=== PATIENT | female | born 1995 | race Caucasian/White ===

== ENCOUNTER → 2016-10-17 | Outpatient (CLI) | payer OTHER ==
[2015-12-31 19:49] VITALS: BP 111/63
[2016-10-17 11:57] LABS: BILIRUBIN,URINE NEGATIVE (NEGATIVE); BLOOD/HEMOGLOBIN,URINE 3+ (NEGATIVE); GLUCOSE, URINE NEGATIVE (NEGATIVE); KETONES,URINE NEGATIVE (NEGATIVE); LEUKOCYTE ESTERASE ,URINE 1+ (NEGATIVE); NITRITES,URINE NEGATIVE (NEGATIVE); PH,URINE 6.5 (5.0 - 8.0); PROTEIN,URINE 1+ (NEGATIVE); UROBILINOGEN,URINE NORMAL (NORMAL)
[2016-10-17 12:00] LABS: BASOPHILS # (AUTO) 0.1 X10^3/uL (0.0-0.1); BASOPHILS % (AUTO) 0.5 % (0.2-1.0); EOSINOPHILS # (AUTO) 0.1 x10^3/uL (0.0-0.2); EOSINOPHILS % (AUTO) 0.7 % (0.9-2.9); HEMATOCRIT 33.6 % (36.0-47.0); HEMOGLOBIN 11.1 g/dL (12.0-16.0); LYMPHOCYTES # (AUTO) 2.2 X10^3/uL (1.3-2.9); LYMPHOCYTES % (AUTO) 16.6 % (21.0-51.0); MEAN CORPUSCULAR HEMOGLOBIN 27.4 pg (27.0-34.0); MEAN CORPUSCULAR HGB CONC 32.9 g/dL (33.0-35.0); MEAN CORPUSCULAR VOLUME 83.3 fL (80.0-100.0); MEAN PLATELET VOLUME 8.8 fL (7.4-11.0); MONOCYTES # (AUTO) 0.8 x10^3/uL (0.3-0.8); MONOCYTES % (AUTO) 5.8 % (0.0-13.0); NEUTROPHILS # (AUTO) 10.2 x10^3/uL (2.2-4.8); NEUTROPHILS % (AUTO) 76.4 % (42.0-75.0); PLATELET COUNT 439 X10^3/uL (150.0-450.0); RED BLOOD COUNT 4.04 X10^6/uL (3.5-5.4); RED CELL DISTRIBUTION WIDTH 13.8 % (11.6-16.5); WHITE BLOOD COUNT 13.3 X10^3/uL (3.6-10.0)
[2016-10-17 12:08] LABS: BLOOD UREA NITROGEN 7 mg/dL (7-18); CALCIUM 8.7 mg/dL (8.5-10.1); CARBON DIOXIDE 23.5 mmol/L (21-32); CHLORIDE 104 mmol/L (98-107); CREATININE 0.63 mg/dL (0.55-1.02); GLUCOSE 95 mg/dL (65-99); SODIUM 138 mmol/L (136-145); eGFR BLACK RACES > 60 (>60); eGFR NON BLACK RACES > 60 (>60)
[2016-10-17 12:18] LABS: AMORPHOUS SEDIMENT,UR 2+ /HPF (NEGATIVE); APPEARANCE,URINE HAZY (CLEAR); BACTERIA,URINE TRACE /HPF (NEGATIVE); COLOR,URINE YELLOW (YELLOW); MUCUS,URINE FEW /HPF (NEGATIVE); SQUAMOUS EPITHELIAL CELL,UR MANY /HPF (NEGATIVE)
== END ==
LOC: LAB 11:17
PROVIDERS: ATTEND Specialist
DX: Z01.818 Encounter for other preprocedural examination (principal); Z34.83 Encounter for supervision of other normal pregnancy, third trimester
CPT/HCPCS: 36415; 80048; 81001; 85025; 86592; 86850; 86900; 86901

== ENCOUNTER 2016-10-20 06:28 | Inpatient (IN) | payer OTHER ==
[~2016-10-20 06:28] MED LIST: D5 1/2 NS 1000 ML 1,000 ML IV ONE; D5 1/2 NS 1000ML W PITOCIN 20 U/L 1,000 ML IV ONE; D5LR 1000ML W PITOCIN 10 U/L 1,000 ML IV ONE; PITOCIN ONE
[2016-10-20] MEDS ORDERED: REGLAN INJ 10 MG VIAL IVP PRN ×2 (06:34→15:25)
[2016-10-20] MEDS ORDERED: PHENERGAN INJ 25 MG IV PRN (06:34)
[2016-10-20] MEDS ORDERED: PITOCIN IVP ONE (06:34)
[2016-10-20] MEDS ORDERED: MORPHINE SULFATE INJ 2 MG IVP PRN (06:34)
[2016-10-20] MEDS ORDERED: D5 1/2 NS 1000 ML 1,000 ML IV SCH (06:34)
[2016-10-20] MEDS ORDERED: PITOCIN 10 UNITS in D5 LR 1000 ML 1,000 ML IV PRN (06:34)
[2016-10-20] MEDS ORDERED: NUBAIN INJ 200 MG VIAL MULTIDOSE IVP PRN (06:34)
[2016-10-20] MEDS ORDERED: HYDROGEN PEROXIDE 3% ONE (06:56)
--- NOTE | 2016-10-20 07:04 | DR.OB ---
OB Quick Note - Assessment/Plan Assessment/Plan: L&D 10/20/16 at 6:50am S-No complaint. O-Afebrile,VSS [id number] with good LTV, +accel, no decel. CTX=none CVX=1cm/50%/-1/VTX A-IUP at 39 0/7 weeks for induction P-Begin pitocin induction Anticipate
[2016-10-20] MEDS ORDERED: NS 1000 ML 1,000 ML ONE (07:29)
[2016-10-20] MEDS ORDERED: LR 1000 ML IV 1,000 ML IV ONE ×2 (07:29→13:19)
[2016-10-20] MEDS ORDERED: FENTANYL INJ 100 mcg ONE (07:30)
[2016-10-20] MEDS ORDERED: NAROPIN EPIDURAL 0.2% + FENTANYL 90MCG 60 ML EPI ONE (07:30)
[2016-10-20] MEDS ORDERED: NS 1000 ML 1,000 ML IV ONE (07:30)
[2016-10-20] MEDS ORDERED: NUBAIN INJ 10 ONE (09:46)
--- NOTE | 2016-10-20 11:54 | DR.OB ---
OB Quick Note - Assessment/Plan Assessment/Plan: L&D 10/20/16 at 11:50am Pitocin=5mu/min. S-No complaint except CTX. Had a spontaneous decel about an hour ago deep for about 3-4 min. that resolved. O-Afebrile,VSS [id number] with good LTV, +accel, no more decel. CTX=q 1 1/2 to 4 min., about 25-50mmHg CVX=3cm/75%/0 FSE placed. A-IUP at 39 0/7 weeks for induction P-Cont. pitocin induction Anticipate
[2016-10-20] MEDS ORDERED: FENTANYL INJ 100 mcg EPI ONE (13:19)
[2016-10-20] MEDS ORDERED: NAROPIN EPIDURAL 0.2% 60 ML with FENTANYL INJ 100 mcg 90 MCG IVP SCH ×2 (14:00)
[2016-10-20] MEDS ORDERED: ANCEF VIAL 1 GM ONE (14:09)
[2016-10-20] MEDS ORDERED: NS 50 ML IV + SPIKE MINIBAG* 50 ML IV ONE (14:09)
[2016-10-20] MEDS ORDERED: XYLOCAINE 2% and EPINEPHRINE 1:100,000 ONE (14:13)
[2016-10-20] MEDS ORDERED: NS IRRIGATION 1000 ML 1,000 ML IR ONE (14:30)
[2016-10-20] MEDS ORDERED: DURAMORPH ONE (14:38)
[2016-10-20] MEDS ORDERED: DIPRIVAN VIAL ONE (14:47)
[2016-10-20] MEDS ORDERED: ZOFRAN INJ 4 MG VIAL ONE (14:47)
[2016-10-20] MEDS ORDERED: XYLOCAINE 2 % (PLAIN) ONE (14:47)
[2016-10-20] MEDS ORDERED: REGLAN INJ 10 MG VIAL ONE (14:47)
[2016-10-20] MEDS ORDERED: PITOCIN ONE (14:47)
[2016-10-20] MEDS ORDERED: ZOFRAN INJ 4 MG VIAL IVP PRN ×2 (15:25→15:43)
[2016-10-20] MEDS ORDERED: BENADRYL INJ 50 MG VIAL IVP PRN ×2 (15:25→15:43)
[2016-10-20] MEDS ORDERED: PHENERGAN INJ 25 MG IVP PRN (15:25)
[2016-10-20] MEDS ORDERED: MYLICON TAB 80 MG CHEW PO PRN (15:43)
[2016-10-20] MEDS ORDERED: PERCOCET TAB 5/325 MG PO PRN (15:43)
[2016-10-20] MEDS ORDERED: ADACEL TDaP IM ONE (15:43)
[2016-10-20] MEDS ORDERED: NARCAN INJ IVP PRN (15:43)
[2016-10-20] MEDS ORDERED: TORADOL 30 MG VIAL IVP PRN (15:43)
[2016-10-20] MEDS ORDERED: D5 1/2 NS 1000 ML 1,000 ML with PITOCIN 20 UNITS IV SCH ×2 (16:00)
[2016-10-20] MEDS: ZANTAC PO SCH (21:02)
[2016-10-21 05:35] LABS: HEMATOCRIT 24.7 % (36.0-47.0); HEMOGLOBIN 8.2 g/dL (12.0-16.0)
[2016-10-21] MEDS: PERCOCET TAB 5/325 MG PO PRN ×4 (07:57→22:44)
[2016-10-21] MEDS: BACTROBAN OINT TOP SCH ×3 (07:58→21:07)
[2016-10-21] MEDS: COLACE CAP 100 MG PO SCH ×2 (07:59→21:07)
[2016-10-21] MEDS: FERROUS SULFATE PO SCH ×2 (07:59→17:16)
[2016-10-21] MEDS: ZANTAC PO SCH ×2 (07:59→21:06)
[2016-10-21] MEDS: PRENATAL PLUS PO SCH (07:59)
[2016-10-21] MEDS ORDERED: ADACEL TDaP IM ONE (12:00)
[2016-10-21] MEDS: MOTRIN TAB 800 MG PO PRN (12:06)
[2016-10-21] MEDS ORDERED: PERCOCET TAB 5/325 MG PO PRN (17:37)
[2016-10-22] MEDS: PERCOCET TAB 5/325 MG PO PRN ×3 (03:03→11:45)
[2016-10-22] MEDS: MOTRIN TAB 800 MG PO PRN (06:15)
[2016-10-22] MEDS: FERROUS SULFATE PO SCH (06:16)
[2016-10-22] MEDS: BACTROBAN OINT TOP SCH (06:27)
[2016-10-22] MEDS: COLACE CAP 100 MG PO SCH (08:43)
[2016-10-22] MEDS: ZANTAC PO SCH (08:43)
[2016-10-22] MEDS: PRENATAL PLUS PO SCH (09:25)
[2016-10-22 12:04] VITALS: BP 95/51
== END 2016-10-22 12:30 | disposition home or self-care (01) | DRG 766 ==
LOC: LD 06:28 → MED/SURG 15:48
PROVIDERS: ADMIT Specialist; ATTEND Specialist
PROC: 10907ZC Drainage of Amniotic Fluid, Therapeutic from Products of Conception, Via Natural or Artificial Opening (ICD-10-PCS; 2016-10-20)
PROC: 3E033VJ Introduction of Other Hormone into Peripheral Vein, Percutaneous Approach (ICD-10-PCS; 2016-10-20)
PROC: 3E0234Z Introduction of Serum, Toxoid and Vaccine into Muscle, Percutaneous Approach (ICD-10-PCS; 2016-10-20)
PROC: 10D00Z1 Extraction of Products of Conception, Low, Open Approach (ICD-10-PCS; principal; 2016-10-20 14:30)
DX: O98.319 Other infections with a predominantly sexual mode of transmission complicating pregnancy, unspecified trimester (principal); Z37.0 Single live birth; O26.899 Other specified pregnancy related conditions, unspecified trimester; O77.8 Labor and delivery complicated by other evidence of fetal stress; Z3A.39 39 weeks gestation of pregnancy; Z23 Encounter for immunization
CPT/HCPCS: 36415; 85014; 85018; A4216; A4222; S0197; J0690; J1885; J2001; J2300; J2405; J2590; J2765; J3010; J3490; J7042; J7120

== ENCOUNTER 2018-07-13 06:29 | Inpatient (IN) ==
[~2018-07-13 06:29] MED LIST changes: +ANCEF 1 GRAM IV PREMIX* 1 G/50 ML BAG IV ONE; -D5 1/2 NS 1000 ML 1,000 ML IV ONE; -D5 1/2 NS 1000ML W PITOCIN 20 U/L 1,000 ML IV ONE; -D5LR 1000ML W PITOCIN 10 U/L 1,000 ML IV ONE; +LR 1000 ML IV 1,000 ML IV ONE; -PITOCIN ONE
[2018-07-13] MEDS ORDERED: D5 1/2 NS 1000 ML 1,000 ML IV SCH (06:36)
[2018-07-13] MEDS ORDERED: ANCEF VIAL 1 GRAM IVP ONE (06:36)
[2018-07-13] MEDS ORDERED: DILAUDID INJ ONE (06:57)
[2018-07-13] MEDS ORDERED: MARCAINE SPINAL ONE (06:58)
[2018-07-13] MEDS ORDERED: FLUVIRIN IM ONE ×2 (07:06→11:39)
[2018-07-13] MEDS ORDERED: LR 1000 ML IV 1,000 ML IV ONE (07:34)
[2018-07-13] MEDS ORDERED: D5 1/2 NS 1L W PITOCIN 20 UNITS/L 20 UNITS/1,000 ML BAG IV ONE (07:35)
[2018-07-13 08:15] LABS: BILIRUBIN,URINE NEGATIVE (NEGATIVE); BLOOD/HEMOGLOBIN,URINE 1+ (NEGATIVE); GLUCOSE, URINE NEGATIVE (NEGATIVE); KETONES,URINE NEGATIVE (NEGATIVE); LEUKOCYTE ESTERASE ,URINE NEGATIVE (NEGATIVE); NITRITES,URINE NEGATIVE (NEGATIVE); PH,URINE 6.5 (5.0 - 8.0); PROTEIN,URINE 2+ (NEGATIVE); UROBILINOGEN,URINE 1+ (NORMAL)
[2018-07-13 08:24] LABS: APPEARANCE,URINE CLEAR (CLEAR); BACTERIA,URINE NEGATIVE /HPF (NEGATIVE); COLOR,URINE YELLOW (YELLOW); MUCUS,URINE FEW /HPF (NEGATIVE); SQUAMOUS EPITHELIAL CELL,UR FEW /HPF (NEGATIVE)
[2018-07-13] MEDS ORDERED: DILAUDID INJ IVP PRN (08:43)
[2018-07-13] MEDS ORDERED: ZOFRAN INJ 4 MG VIAL IVP PRN ×2 (08:43→09:01)
[2018-07-13] MEDS ORDERED: REGLAN INJ 10 MG VIAL IVP PRN ×2 (08:43→09:01)
[2018-07-13] MEDS ORDERED: BENADRYL INJ 50 MG VIAL IVP PRN ×2 (08:43→09:01)
[2018-07-13] MEDS ORDERED: PHENERGAN INJ 25 MG IVP PRN (08:43)
[2018-07-13] MEDS ORDERED: D5 1/2 NS 1000 ML 1,000 ML with PITOCIN 20 UNITS IV SCH ×2 (09:01)
[2018-07-13] MEDS ORDERED: TORADOL 30 MG VIAL IVP PRN (09:01)
[2018-07-13] MEDS ORDERED: ADACEL or BOOSTRIX TDaP VACCINE IM ONE ×2 (09:01→11:27)
[2018-07-13] MEDS ORDERED: NARCAN INJ IVP PRN (09:01)
[2018-07-13] MEDS ORDERED: PERCOCET TAB 5/325 MG PO PRN (09:01)
[2018-07-13] MEDS ORDERED: TORADOL 30 MG VIAL ONE (09:53)
[2018-07-13] MEDS ORDERED: NS IRRIGATION 1000 ML ONE (11:12)
[2018-07-13] MEDS: PRENATAL PLUS PO SCH (11:17)
[2018-07-13] MEDS: ZANTAC PO SCH ×3 (11:18→21:10)
[2018-07-13] MEDS ORDERED: EPHEDRINE SULFATE INJ ONE (14:12)
[2018-07-13] MEDS ORDERED: DIPRIVAN VIAL ONE (14:12)
[2018-07-13] MEDS ORDERED: VERSED ONE (14:12)
[2018-07-13] MEDS ORDERED: MOTRIN TAB 800 MG PO PRN (16:49)
[2018-07-13] MEDS: MYLICON TAB 80 MG CHEW PO PRN (19:37)
[2018-07-13] MEDS: COLACE CAP 100 MG PO SCH (21:10)
[2018-07-13] MEDS: BACTROBAN CREAM TOP SCH (21:11)
[2018-07-13] MEDS ORDERED: TORADOL 30 MG VIAL IVP ONE (23:43)
[2018-07-14 05:16] LABS: HEMATOCRIT 25.6 % (36.0-47.0); HEMOGLOBIN 8.6 g/dL (12.0-16.0)
[2018-07-14] MEDS: BACTROBAN CREAM TOP SCH (05:48)
[2018-07-14] MEDS: PERCOCET TAB 5/325 MG PO PRN ×2 (06:18→12:15)
[2018-07-14] MEDS ORDERED: DEPO-PROVERA CONTRACEPTIVE INJ IM ONE (06:19)
[2018-07-14] MEDS: MYLICON TAB 80 MG CHEW PO PRN (08:43)
[2018-07-14] MEDS: ZANTAC PO SCH (08:43)
[2018-07-14] MEDS: COLACE CAP 100 MG PO SCH (08:43)
[2018-07-14] MEDS: PRENATAL PLUS PO SCH (09:59)
[2018-07-14 12:34] VITALS: BP 117/72
== END 2018-07-14 12:25 | disposition home or self-care (01) | DRG 788 ==
LOC: LD 06:29 → MED/SURG 09:24
PROVIDERS: ADMIT Specialist; ATTEND Specialist
DX: Z23 Encounter for immunization; N85.8 Other specified noninflammatory disorders of uterus; Z37.0 Single live birth; O34.211 Maternal care for low transverse scar from previous cesarean delivery; O99.613 Diseases of the digestive system complicating pregnancy, third trimester; Z3A.38 38 weeks gestation of pregnancy; O24.410 Gestational diabetes mellitus in pregnancy, diet controlled; Z01.818 Encounter for other preprocedural examination
CPT/HCPCS: 36415; 80048; 81001; 81003; 85014; 85018; 85025; 85610; 85730; 86592; 86850; 86900; 86901; 87086; 90686; 90715; A4216; A4222; J0690; J1050; J1170; J1200; J1885; J2250; J2704; J3490; J7120